=== PATIENT | female | born 1940 | race Caucasian/White ===

== ENCOUNTER → 2017-01-08 | Day surgery (SDC) | payer MEDICARE, BC ==
[~2017-01-08] MED LIST: ASPI-110 PO; BUPIVACAINE HCL PF 0.5% 30 ML VIAL ONE; CETI10CA3 PO; CYANOCOBALAMIN 1000 MCG/ML VIAL IM ONE; FURO40TA PO; IRBE300T44 PO; LEVO.125 PO; LIPI10TA PO; METF500 PO; PROPOFOL 200 MG/20 ML AMP IV ONE; PROT40TA PO; TRAM50TA PO; TRIAMCINOLONE ACETONIDE 40 MG/ML VIAL NERV BLOCK ONE; VENL25TA PO; VERA120T3 PO; methylPREDNISolone ACETATE 40 MG/ML VIAL I-ARTICULR ONE
--- NOTE | 2017-01-09 10:29 | M6 ---
cc: YVONNE ALBA M.D., GEORGE MD DATE: 01/08/2017 DATE OF : 1940 PROCEDURE Fluoroscopically guided injection bilateral sacroiliac joints. PREPROCEDURE NOTE: I last saw Ms Bhandari a year and half ago in August 2015, we performed fluoroscopically guided injection of her bilateral sacroiliac joints and she had good relief until just recently. Her activity has increased because her has kidney cancer and she has had to tend to him but her pain is in the same location, low in her back so we are going to repeat the bilateral sacroiliac joint injection today. History and physical was completed and signed. Consent was signed. Procedure site was marked. Medications were listed and reconciled. Pain score was recorded. Allergies were noted. Time out was taken. Fluoroscopy time was recorded where applicable. Sedation was administered or directed by Dr. Alba. The patient was given oxygen. The patient was monitored by a registered nurse. Total procedure time was greater than 15 minutes. IV was started, blood pressure cuff, pulse oximeter and EKG were applied. The patient was placed in the prone position on a Yunior table sedated with small amounts of propofol titrated to effect. Vital signs were monitored and remained stable throughout the procedure the sacral area was prepped with alcohol and 10% Betadine solution and draped with sterile drapes. Fluoroscopy was used shooting from medial to lateral to clearly visualize the posterior joint line of the bilateral sacroiliac joints. Separate sterile 5-inch 22-gauge spinal needles were advanced into these joints under fluoroscopic guidance. There was negative aspiration for blood or any other type of fluid and at each location the patient was given 2 mL of 0.5% Marcaine 20 mg of Depo-Medrol 20 mg of Kenalog. Following the procedure the patient was taken to the recovery room with stable vital signs neurologically intact. W. MD AMELIA You/mariela /10:58 AM /10:21 AM
== END | disposition home or self-care (01) ==
LOC: PHSDC 08:59
PROVIDERS: ATTEND Pain Medicine Interventional Pain Medicine
DX: M54.5 Low back pain (principal)
CPT/HCPCS: 99152; G0260; J1030; J3301; J3420; 27096